=== PATIENT | female | born 1975 | race Caucasian/White ===

== ENCOUNTER 2019-12-22 15:52 | Outpatient (CLI) | payer OTHER, SELFPAY ==
--- NOTE | 2019-12-22 | XRR_ITS ---
PROCEDURE INFORMATION: Exam: XR Right Hip with Pelvis when Performed Exam date and time: 12/22/2019 4:02 PM Age: 44 years old Clinical indication: Hip pain; Right hip; Patient HX: No known trauma, pain since April 2019; Additional info: RT hip pain TECHNIQUE: Imaging protocol: XR Right hip with pelvis when performed. Views: 1 view. COMPARISON: No relevant prior studies available. FINDINGS: Bones/joints: There are minimal degenerative changes of the right hip and sacroiliac joint. There is a benign subchondral cyst in the femoral head on the frogleg view. No findings of osteonecrosis or bony destruction. No sacroiliitis. The bone density is appropriate. No acute fracture or dislocation. No bony destructive changes. Soft tissues: No foreign body. No gas in the soft tissues. Other findings: No periosteal reaction. No osteomyelitis. XR/XR hip RT 2-3V wo/w pel* [id number] IMPRESSION: No acute bony abnormality.
== END 2019-12-22 15:53 | disposition home or self-care (01) ==
LOC: RADWPI 15:56
PROVIDERS: Family Provider Family Medicine; PCP Family Medicine; Visit Provider Family Medicine
DX: M25.551 Pain in right hip (principal)
CPT/HCPCS: 73502

== ENCOUNTER 2020-01-25 08:04 | Outpatient (CLI) | payer OTHER, SELFPAY ==
--- NOTE | 2020-01-25 08:08 | MM_ITS ---
WS: [id number] BILATERAL SCREENING DIGITAL MAMMOGRAM WITH CAD HISTORY: SCREENING COMPARISON: None available. Bilateral CC and MLO views submitted. Computer aided detection analyzed. Breast composition: The breasts are heterogeneously dense, which may obscure small masses. No suspici ous masses, microcalcifications or architectural distortion. MM/[id number] IMPRESSION: BI-RADS: 1-Negative FOLLOW UP: 1 Year Follow-up
== END 2020-01-25 08:05 | disposition home or self-care (01) ==
LOC: RADSHAW 08:07
PROVIDERS: PCP Family Medicine; Visit Provider Family Medicine
DX: Z12.31 Encounter for screening mammogram for malignant neoplasm of breast (principal)
CPT/HCPCS: 77067

== ENCOUNTER 2020-03-25 14:51 | Outpatient (CLI) | payer OTHER, SELFPAY ==
--- NOTE | 2020-03-25 15:17 | US_ITS ---
WS: [id number] ULTRASOUND PELVIS TECHNIQUE: Transabdominal and transvaginal. ULTRASOUND PELVIS TECHNIQUE: Transabdominal. CLINICAL INFORMATION: Evaluate for fibroids : No. COMPARISON: None. FINDINGS: Uterus Orientation: Anteverted. Size: 7.9 cm x 4.9 cm x 4.4 cm. Masses: None. Cervix: Normal Endometrium: Normal. Endometrium thickness: 0.2 cm. Adnexa: Normal. Right ovary size: 3.5 cm x 2.4 cm x 2.1 cm. Right ovary volume: 8.8 ccm3. Left ovary size: 2.2 cm x 2.6 cm x 1.1 cm. Left ovary volume: 3.5 ccm3 Free fluid: None. Other findings: None. US/US pelvic with transvaginal IMPRESSION: 1. Normal uterus and endometrium. 2. Both ovaries are normal in appearance with physiologic follicles. 3. No free fluid in the cul-de-sac. 4. No visualized fibroids.
== END 2020-03-25 14:52 | disposition home or self-care (01) ==
PROVIDERS: PCP Family Medicine; Visit Provider Family Medicine
DX: Z32.01 Encounter for pregnancy test, result positive (principal); N92.0 Excessive and frequent menstruation with regular cycle
CPT/HCPCS: 76830; 76856

== ENCOUNTER 2020-08-15 07:02 | Outpatient (CLI) | payer OTHER, SELFPAY ==
--- NOTE | 2020-08-15 07:05 | MR_ITS ---
WS: [id number] MRI RIGHT HIP NONCONTRAST TECHNIQUE: Axial T1, axial T2 fat sat, coronal T1, coronal STIR, sagittal T2 fat sat, sagittal T1, an d sagittal T2 fat sat, of both hips. CLINICAL INFORMATION: RIGHT HIP PAIN COMPARISON: None. FINDINGS: Normal bone marrow signal in both hips. No acute fractures. No evidence of avascular necrosis. Minima l degenerative narrowing both hips. Small incidental synovial herniation pit right femoral neck. Sacroiliac joints are normal in appearance. No evidence of sacroiliitis. Normal bone marrow edema. No rmal pubic rami. Proximal femoral shafts are normal in appearance. MR/MR hip RT wo con* [id number] IMPRESSION: 1. Right hip is normal in appearance. No acute fractures or bone marrow edema. 2. Minimal degenerative narrowing both hip 3. Incidental benign synovial herniation pit right femoral neck. 4. Normal bone marrow signal in the sacrum and pelvic bony structures. 5. No other significant findings.
== END 2020-08-15 07:03 | disposition home or self-care (01) ==
LOC: RADSHAW 07:04
PROVIDERS: PCP Family Medicine; Visit Provider Family Medicine
DX: M25.551 Pain in right hip (principal); K41.90 Unilateral femoral hernia, without obstruction or gangrene, not specified as recurrent
CPT/HCPCS: 73721

== ENCOUNTER → 2020-09-25 10:48 | Outpatient (BNVA) | payer OTHER, SELFPAY | PROVIDERS: PCP Family Medicine; Referring Provider Family Medicine; Visit Provider Specialist | DX: M25.551 Pain in right hip (principal) | CPT/HCPCS: 73502 ==

== ENCOUNTER → 2021-02-27 09:54 | Outpatient (BNVA) | payer OTHER, SELFPAY | PROVIDERS: PCP Family Medicine; Referring Provider Family Medicine; Visit Provider Podiatrist Foot & Ankle Surgery | DX: M21.611 Bunion of right foot (principal) | CPT/HCPCS: 73630 ==

== ENCOUNTER 2021-03-11 11:04 | Outpatient (CLI) | payer OTHER, SELFPAY ==
--- NOTE | 2021-03-11 11:08 | MM_ITS ---
WS: [id number] BILATERAL SCREENING DIGITAL MAMMOGRAM WITH CAD HISTORY: SCREENING COMPARISON: 01/25/2020 Bilateral CC and MLO views submitted. Computer aided detection analyzed. Breast composition: The breasts are heterogeneously dense, which may obscure small masses. No suspici ous masses, microcalcifications or architectural distortion. MM/[place] [id number] IMPRESSION: BI-RADS: 1-Negative FOLLOW UP: 1 Year Follow-up
== END 2021-03-11 11:05 | disposition home or self-care (01) ==
LOC: RADSHAW 11:07
PROVIDERS: PCP Family Medicine; Visit Provider Family Medicine
DX: Z12.31 Encounter for screening mammogram for malignant neoplasm of breast (principal)
CPT/HCPCS: 77067

== ENCOUNTER 2021-04-30 11:39 | Outpatient (CLI) | payer OTHER, SELFPAY | END 2021-04-30 11:40 | disposition home or self-care (01) | LOC: SPT 11:40 | PROVIDERS: PCP Family Medicine; Visit Provider Podiatrist Foot & Ankle Surgery | DX: Z46.89 Encounter for fitting and adjustment of other specified devices (principal); M21.611 Bunion of right foot | CPT/HCPCS: L3030 ==

== ENCOUNTER → 2022-02-03 09:43 | Outpatient (BNVA) | payer OTHER, SELFPAY | PROVIDERS: PCP Family Medicine; Visit Provider Family Medicine | DX: Z51.81 Encounter for therapeutic drug level monitoring (principal); E04.1 Nontoxic single thyroid nodule; Z13.220 Encounter for screening for lipoid disorders; Z12.11 Encounter for screening for malignant neoplasm of colon; Z00.00 Encounter for general adult medical examination without abnormal findings | CPT/HCPCS: 80053; 80061; 84439; 84443; 85025 ==

== ENCOUNTER 2022-03-16 09:08 | Outpatient (CLI) | payer OTHER, SELFPAY ==
--- NOTE | 2022-03-16 09:15 | MM_ITS ---
WS: [id number] BILATERAL SCREENING DIGITAL TOMOSYNTHESIS MAMMOGRAM WITH CAD HISTORY: Screening mammogram COMPARISON: 03/11/2021 and 01/25/2020 Bilateral CC and MLO views with tomosynthesis and synthetic mammography submitted. Computer aided det ection analyzed. Breast composition: The breasts are extremely dense, which lowers the sensitivity of mammography. No suspicious masses, microcalcifications or architectural distortion. MM/[place] [id number] IMPRESSION: BI-RADS: 1-Negative FOLLOW UP: 1 Year Follow-up
== END 2022-03-16 09:09 | disposition home or self-care (01) ==
PROVIDERS: PCP Family Medicine; Visit Provider Family Medicine
DX: Z12.31 Encounter for screening mammogram for malignant neoplasm of breast (principal)
CPT/HCPCS: 77063; 77067

== ENCOUNTER 2022-04-20 13:05 | Outpatient (CLI) | payer OTHER, SELFPAY ==
--- NOTE | 2022-04-20 13:30 | US_ITS ---
WS: [id number] ULTRASOUND THYROID TECHNIQUE: Ultrasound of the thyroid. CLINICAL INFORMATION: Thyroid nodule COMPARISON: 2015 FINDINGS: Thyroid: Right and left thyroid lobes are normal in size with diffuse heterogeneous echotexture jazmine tible with history of goiter. New Nodules have developed in the LEFT thyroid compared to 2015. Right thyroid lobe: 4.6 cm x 1.7 cm x 1.4 cm Left thyroid lobe: 4.8 cm x 1.8 cm x 1.4 cm. Complex mid thyroid solid and cystic nodule with increased vascularity measuring 1.3 x 0.7 x 1.4 cm Additional solid echogenic nodule with increased vascularity measuring 1.2 x 0.9 x 0.7 cm in the mid inferior thyroid. Isthmus: 0.3 mm. Cervical lymphadenopathy: No lymphadenopathy. US/US thyroid [id number] IMPRESSION: 1. Right and left thyroid lobes are normal in size with diffuse heterogeneou s echotexture compatible with history of goiter. 2. Complex LEFT mid thyroid solid and cystic nodule with increased vasculari ty measuring 1.3 x 0.7 x 1.4 cm. TI-RADS TR4. Recommend further evaluation with FNA. 3. Additional solid LEFT echogenic nodule with increased vascularity measuring 1.2 x 0.9 x 0.7 cm in the mid inferior thyroid. TI-RADS TR3. Recommend 12 month follow-up. 4. No suspicious RIGHT thyroid nodules.
== END 2022-04-20 13:06 | disposition home or self-care (01) ==
LOC: RAD 13:05
PROVIDERS: PCP Family Medicine; Visit Provider Family Medicine
DX: E04.1 Nontoxic single thyroid nodule (principal)
CPT/HCPCS: 76536

== ENCOUNTER → 2023-02-11 10:54 | Outpatient (BNVA) | payer OTHER, SELFPAY | PROVIDERS: PCP Family Medicine; Visit Provider Family Medicine | DX: Z51.81 Encounter for therapeutic drug level monitoring (principal); Z13.220 Encounter for screening for lipoid disorders; E04.1 Nontoxic single thyroid nodule | CPT/HCPCS: 80053; 80061; 84439; 84443; 84481; 85025 ==

== ENCOUNTER 2023-03-22 10:13 | Outpatient (CLI) | payer OTHER, SELFPAY ==
--- NOTE | 2023-03-22 10:14 | MM_ITS ---
WS: [id number] BILATERAL SCREENING DIGITAL TOMOSYNTHESIS MAMMOGRAM WITH CAD HISTORY: Screening - Due in March COMPARISON: 03/16/2022 and 03/11/2021 Bilateral CC and MLO views with tomosynthesis and synthetic mammography submitted. Computer aided det ection analyzed. Breast composition: The breasts are heterogeneously dense, which may obscure small masses. No suspici ous masses, microcalcifications or architectural distortion. IMPRESSION: MM/[place] [id number] BI-RADS: 1-Negative FOLLOW UP: 1 Year Follow-up
== END 2023-03-22 10:14 | disposition home or self-care (01) ==
PROVIDERS: PCP Family Medicine; Visit Provider Family Medicine
DX: Z12.31 Encounter for screening mammogram for malignant neoplasm of breast (principal)
CPT/HCPCS: 77063; 77067

== ENCOUNTER → 2024-02-14 11:10 | Outpatient (BNVA) | payer OTHER, SELFPAY | PROVIDERS: PCP Family Medicine; Visit Provider Family Medicine | DX: Z51.81 Encounter for therapeutic drug level monitoring (principal); Z00.00 Encounter for general adult medical examination without abnormal findings; E03.9 Hypothyroidism, unspecified; R30.0 Dysuria | CPT/HCPCS: 80053; 80061; 81000; 84439; 84443; 85025; 87624 ==

== ENCOUNTER 2024-04-19 10:00 | Outpatient (CLI) | payer OTHER, SELFPAY ==
--- NOTE | 2024-04-19 10:00 | MM_ITS ---
WS: [id number] Bilateral screening 3D tomosynthesis digital mammogram, 04/19/2024 10:06 AM Clinical Data: Screening mammogram Comparison: 03/22/2023, 03/16/2022, 03/11/2021, 01/25/2020. Findings: No spiculated masses or clustered calcifications are seen. There are no secondary signs of carcinoma . MM/MM scr BI tomosynthesis [id number] Impression: Negative bilateral mammogram unchanged. Recommend annual screening mammograms. BIRADS: 1 - Negative FOLLOW UP: 1 Year Follow-up DENSITY: The breasts are heterogeneously dense, which may obscure small masses. The CAD odd piece checker was used
== END 2024-04-19 10:03 | disposition home or self-care (01) ==
PROVIDERS: PCP Family Medicine; Visit Provider Family Medicine
DX: Z12.31 Encounter for screening mammogram for malignant neoplasm of breast (principal)
CPT/HCPCS: 77063; 77067

== ENCOUNTER → 2024-08-02 07:25 | Outpatient (BNVA) | payer OTHER, SELFPAY | PROVIDERS: PCP Family Medicine; Visit Provider Family Medicine | DX: E04.1 Nontoxic single thyroid nodule (principal) | CPT/HCPCS: 84439; 84443 ==